=== PATIENT | female | born 1980 | race Caucasian/White ===

== ENCOUNTER 2024-09-25 15:02 | Emergency (ER) | payer SELFPAY ==
[2024-09-25] MEDS ORDERED: Ondansetron ODT 4 MG TAB ONE (15:35)
[2024-09-25] MEDS ORDERED: Fioricet 325/50/40 mg Tablet PO SCH (15:45)
[2024-09-25 16:36] LABS: Pregnancy Test - Urine (BHCG) Negative (Negative); Pregu Control Background? CLEAR/WHITE (CLR/WHITE); Pregu Control Bar Appear? YES (CONTROL BAR); Specific Gravity 1.015 (1.002-1.036)
== END 2024-09-25 17:57 | disposition home or self-care (01) ==
LOC: CSHERS 15:02
DX: S06.0X0A Concussion without loss of consciousness, initial encounter (principal); W22.8XXA Striking against or struck by other objects, initial encounter
CPT/HCPCS: 70450; 72125; 81025; Q0162